=== PATIENT | female | born 1940 | race Caucasian/White ===

== ENCOUNTER → 2017-06-07 | Outpatient (CLI) | payer MEDICARE, BC ==
[2017-06-07 10:31] LABS: BASOPHIL # 0.1 K/uL (0.0-0.2); BASOPHIL % 1.1 %; EOSINOPHIL # 0.1 K/uL (0.0-0.5); EOSINOPHIL % 1.7 %; HEMATOCRIT 35.4 % (33.0-46.0); HEMOGLOBIN 11.9 g/dL (10.0-15.0); IMMATURE GRANULOCYTE % 0.3 %; LYMPHOCYTE # 1.6 K/uL (0.8-4.0); LYMPHOCYTE % 24.6 %; MCH 29.2 pg (27.0-34.0); MCHC 33.6 gm/dL (32.0-36.5); MONOCYTE # 0.7 K/uL (0.0-1.0); MONOCYTE % 11.3 %; MPV 10.1 fl (9.4-12.4); NEUTROPHIL # (ANC) 3.9 K/uL (1.8-7.8); NRBC % 0 /100WBC (0-0.00); PLATELET COUNT 200 K/uL (150-450); RBC 4.07 M/uL (3.50-5.50); RDW-CV 12.9 % (11.9-14.6); WBC 6.4 K/uL (4.0-11.0)
[2017-06-07 10:54] LABS: ALBUMIN 3.3 gm/dL (3.5-5.0); ANION GAP 10.9 (10.0-19.0); CALCIUM 8.6 mg/dL (8.5-10.5); CREATININE 0.9 mg/dL (0.5-1.1); TOTAL BILIRUBIN 0.7 mg/dL (0.0-1.5); TOTAL PROTEIN 6.9 g/dL (6.0-8.4)
[2017-06-07 10:55] LABS: POTASSIUM 2.9 mMol/L (3.7-5.1)
== END | disposition disaster alternative care site (69) ==
LOC: GLAB 10:00
PROVIDERS: Internal Medicine Hematology & Oncology
DX: K86.89 Other specified diseases of pancreas (principal); F17.291 Nicotine dependence, other tobacco product, in remission; R97.8 Other abnormal tumor markers

== ENCOUNTER → 2017-06-08 | Outpatient (CLI) | payer MEDICARE, BC | END | disposition disaster alternative care site (69) | LOC: GRAD 06-07 11:00 | DX: Z08 Encounter for follow-up examination after completed treatment for malignant neoplasm (principal); K86.89 Other specified diseases of pancreas; F17.291 Nicotine dependence, other tobacco product, in remission; I70.90 Unspecified atherosclerosis; R97.8 Other abnormal tumor markers; Z85.07 Personal history of malignant neoplasm of pancreas; Z98.890 Other specified postprocedural states | CPT/HCPCS: Q9967 ==